=== PATIENT | female | born 1950 | race Caucasian/White ===

== ENCOUNTER 2016-05-07 07:46 | Day surgery (SDC) | payer BC, OTHER ==
[2016-05-07] MEDS ORDERED: Phenylephrine 10% Ophth Soln 5 ML Bot EYERT ONE (08:00)
[2016-05-07] MEDS ORDERED: Sodium Chloride 0.9% 10 ML Syringe FLUSH PRN (08:00)
[2016-05-07] MEDS ORDERED: Cataract Ophth Solution EYERT ONE (08:00)
[2016-05-07] MEDS ORDERED: Povidone-Iodine 5% Sterile Ophth Soln 30 ML Bottle EYERT ONE ×2 (08:00→09:12)
[2016-05-07] MEDS ORDERED: Proparacaine 0.5% Ophth Soln 15 ML Bottle EYERT ONE (08:00)
[2016-05-07] MEDS ORDERED: Timolol Maleate 0.5% Ophth Soln 5 ML Bottle EYERT ONE (08:00)
[2016-05-07] MEDS ORDERED: Acetaminophen/Codeine 300-30 MG Tab PO PRN (08:00)
[2016-05-07] MEDS ORDERED: Ondansetron 4 MG/2 ML SDV IVPUSH PRN (08:00)
[2016-05-07] MEDS ORDERED: Phenylephrine 10% Ophth Soln 5 ML Bot EYERT PRN (08:00)
[2016-05-07] MEDS ORDERED: Acetaminophen 325 MG Tab PO PRN (08:00)
[2016-05-07] MEDS ORDERED: Moxifloxacin 0.5% Ophth Soln 3 ML Bottle EYERT ONE (08:00)
[2016-05-07] MEDS ORDERED: Tetracaine 0.5% 2 ML Bottle EYERT ONE (09:11)
[2016-05-07] MEDS ORDERED: Apraclonidine 0.5% Ophth Soln 5 ML Bot EYERT ONE (09:12)
[2016-05-07] MEDS ORDERED: Dexamethasone/Neomycin/Polymyxin B Ophth Oint 3.5 GM Tube EYERT ONE (09:13)
[2016-05-07] MEDS ORDERED: Diclofenac Sodium 0.1% Ophth Soln 5 ML Bottle EYERT ONE (09:13)
[2016-05-07] MEDS ORDERED: Lidocaine 1% 30 ML SDV ONE (09:14)
[2016-05-07] MEDS ORDERED: Vancomycin 500 MG SDV EYERT ONE (09:14)
[2016-05-07] MEDS ORDERED: Balanced Salt Solution Ophth Irrig 500 ML Bottle IOCULAR ONE (09:14)
[2016-05-07] MEDS ORDERED: Chondroitin Sulfate/Hyaluronate Sodium Ophth Inj 0.75 ML Syringe EYERT ONE (09:14)
[2016-05-07] MEDS ORDERED: Midazolam 1 MG/ML 2 ML SDV IV ONE (10:24)
[2016-05-07] MEDS ORDERED: Dexamethasone 4 MG/ML SDV IV ONE (10:24)
--- NOTE | 2016-05-07 10:51 | OR ---
DATE: 05/07/2016 PREOPERATIVE DIAGNOSIS: Cataract, right eye. POSTOPERATIVE DIAGNOSIS: Cataract, right eye. PROCEDURE: Extracapsular cataract extraction with intraocular lens implant, right eye. ANESTHESIA: Topical/local MAC. COMPLICATIONS: None. INDICATION: Mrs. Mcdaniels was seen in the clinic. She has complained of a progressive decrease in vision. Clinical examination reveals visually significant cataract with best spectacle corrected vision of 20/70. I explained options, offered cataract surgery, and explained risks preoperatively, including, but not limited to, infection, retinal detachment, loss of vision, need for additional surgery, and risks associated with anesthesia. We discussed implant options preoperatively. She has significant preexisting astigmatism and has requested a Toric implant. I explained that she may still require glasses for some activities following surgery. OPERATIVE DESCRIPTION: After informed consent was obtained and the risks, benefits, and alternatives were explained, the patient was brought to the operative suite and topical anesthesia was administered. The patient was then prepped and draped in the sterile fashion and attention was placed on the right eye. A sterile lid speculum was placed into the right eye to allow operative exposure. A full-thickness paracentesis was made in the temporal portion of the operative eye. Preservative-free lidocaine 0.1 mL was injected into the anterior chamber followed by viscoelastic. A full-thickness corneal incision was then made into the anterior chamber. A bent needle cystotome was used to create a small chetna in the anterior capsule. The capsulorrhexis forceps was then used to create a 360-degree curvilinear capsulorrhexis. The nucleus was then removed using a phacoemulsification handpiece and the remaining cortical material was then removed with irrigation and aspiration handpiece. Following removal of the cortical material, the capsular bag was then inspected and noted to be free of any holes or tears. Viscoelastic was then injected into the capsular bag and the intraocular lens was inserted into the capsular bag. The implant was oriented to correspond with preoperative corneal dominguez made with the patient in the upright position. The viscoelastic material was then removed from both the anterior and posterior chambers and from behind the IOL. The lens and capsular bag were then reinspected. The IOL was well centered and the capsular bag intact. The wound and paracentesis sites were inspected and hydrated with balanced saline solution. Both were found to be self-sealing. The intraocular pressure was assessed digitally and found to be within normal range. A good red reflex was noted at the completion of the procedure. No complications occurred during the operation. At the completion of the procedure, Maxitrol, Voltaren, and Iopidine drops were placed into the operative eye. A sterile eye shield was placed over the operative eye and the patient was transported to the postoperative recovery area having tolerated the procedure well. Postoperative instructions were given along with a postoperative appointment. The patient was advised to call with any questions or concerns. No complications occurred. [facility] /[id number]
[2016-06-11 13:44] VITALS: BP 109/69
== END 2016-05-07 10:30 | disposition home or self-care (01) ==
LOC: DL.SDS 07:46
PROVIDERS: ATTEND Ophthalmology
DX: H26.9 Unspecified cataract (principal); K21.9 Gastro-esophageal reflux disease without esophagitis; F32.9 Major depressive disorder, single episode, unspecified; Z90.710 Acquired absence of both cervix and uterus; Z98.890 Other specified postprocedural states; Z79.899 Other long term (current) drug therapy
CPT/HCPCS: 66984; A9270; J3370; J7050; J1100; J2250; V2787

== ENCOUNTER 2016-07-15 09:30 | Day surgery (SDC) | payer BC ==
[~2016-07-15 09:30] MED LIST: Cataract Ophth Solution EYELF ONE; Dexamethasone 4 MG/ML SDV ONE; Midazolam 1 MG/ML 2 ML SDV ONE; Moxifloxacin 0.5% Ophth Soln 3 ML Bottle EYELF ONE; Phenylephrine 10% Ophth Soln 5 ML Bot EYELF ONE; Povidone-Iodine 5% Sterile Ophth Soln 30 ML Bottle EYELF ONE; Proparacaine 0.5% Ophth Soln 15 ML Bottle EYELF ONE; Timolol Maleate 0.5% Ophth Soln 5 ML Bottle EYELF ONE
[2016-07-15] MEDS ORDERED: Sodium Chloride 0.9% 10 ML Syringe IV PRN (10:00)
[2016-07-15] MEDS ORDERED: Tetracaine HCl/PF 0.5% 4 ML Bottle EYELF ONE (10:18)
[2016-07-15] MEDS ORDERED: Apraclonidine 0.5% Ophth Soln 5 ML Bot EYELF ONE (10:19)
[2016-07-15] MEDS ORDERED: Diclofenac Sodium 0.1% Ophth Soln 5 ML Bottle EYELF ONE (10:19)
[2016-07-15] MEDS ORDERED: Povidone-Iodine 5% Sterile Ophth Soln 30 ML Bottle EYELF ONE (10:19)
[2016-07-15] MEDS ORDERED: Dexamethasone/Neomycin/Polymyxin B Ophth Oint 3.5 GM Tube EYELF ONE (10:20)
[2016-07-15] MEDS ORDERED: Lidocaine 1% 30 ML SDV ONE (10:20)
[2016-07-15] MEDS ORDERED: Balanced Salt Solution Ophth Irrig 500 ML Bottle IOCULAR ONE (10:20)
[2016-07-15] MEDS ORDERED: Chondroitin Sulfate/Hyaluronate Sodium Ophth Inj 0.75 ML Syringe EYELF ONE (10:20)
[2016-07-15] MEDS ORDERED: Vancomycin 500 MG SDV EYELF ONE (10:20)
--- NOTE | 2016-07-15 11:29 | OR ---
DATE: 07/15/2016 PREOPERATIVE DIAGNOSIS: Cataract, left eye. POSTOPERATIVE DIAGNOSIS: Cataract, left eye. PROCEDURE: Extracapsular cataract extraction with intraocular lens implant, left eye. ANESTHESIA: Topical/local MAC. COMPLICATIONS: None. INDICATION: Ms. Mcdaniels was seen in the clinic with complaints of blurred vision, difficulty driving, difficulty with bright lights and glare. Clinical examination revealed visually significant cataract. I explained options. I offered cataract surgery and I explained risks preoperatively including but not limited to, infection, retinal detachment, loss of vision, need for additional surgery, and risks associated with anesthesia. We discussed implant options. She requested a monofocal implant. OPERATIVE DESCRIPTION: After informed consent was obtained and the risks, benefits, and alternatives were explained, the patient was brought to the operative suite and topical anesthesia was administered. The patient was then prepped and draped in the sterile fashion and attention was placed on the left eye. A sterile lid speculum was placed into the left eye to allow operative exposure. A full-thickness paracentesis was made in the temporal portion of the operative eye. Preservative-free lidocaine 0.1 mL was injected into the anterior chamber followed by viscoelastic. A full-thickness corneal incision was then made into the anterior chamber. A bent needle cystotome was used to create a small chetna in the anterior capsule. The capsulorrhexis forceps was then used to create a 360-degree curvilinear capsulorrhexis. The nucleus was then removed using a phacoemulsification handpiece and the remaining cortical material was then removed with irrigation and aspiration handpiece. Following removal of the cortical material, the capsular bag was then inspected and noted to be free of any holes or tears. Viscoelastic was then injected into the capsular bag and the intraocular lens was inserted into the capsular bag. No complications occurred. The viscoelastic material was then removed from both the anterior and posterior chambers and from behind the IOL. The lens and capsular bag were then reinspected. The IOL was well centered and the capsular bag intact. The wound and paracentesis sites were inspected and hydrated with balanced saline solution. Both were found to be self-sealing. The intraocular pressure was assessed digitally and found to be within normal range. A good red reflex was noted at the completion of the procedure. No complications occurred during the operation. At the completion of the procedure, Maxitrol, Voltaren, and Iopidine drops were placed into the operative eye. A sterile eye shield was placed over the operative eye and the patient was transported to the postoperative recovery area having tolerated the procedure well. Postoperative instructions were given along with a postoperative appointment. The patient was advised to call with any questions or concerns. [facility] /[id number]
[2016-07-15 12:56] VITALS: BP 135/75
[2016-07-15] MEDS ORDERED: Midazolam 1 MG/ML 2 ML SDV IV ONE (14:48)
[2016-07-15] MEDS ORDERED: Dexamethasone 4 MG/ML SDV IV ONE (14:48)
== END 2016-07-15 11:15 | disposition home or self-care (01) ==
LOC: DL.SDS 09:30
PROVIDERS: ATTEND Ophthalmology
DX: H26.9 Unspecified cataract (principal)
CPT/HCPCS: 66984; A9270; C1780; J1100; J2250; J3370; J7050

== ENCOUNTER 2017-11-08 17:17 | Emergency (ER) | payer OTHER, BC ==
[2017-11-08 17:21] VITALS: BP 160/86
[2017-11-08] MEDS ORDERED: Lidocaine 1% 30 ML SDV INJECT ONE (18:55)
[2017-11-08] MEDS ORDERED: Bacitracin Oint 1 GM U/D Packet TOP ONE (18:55)
--- NOTE | 2017-11-08 18:56 | EDM.PDOC ---
ED HPI GENERAL MEDICAL PROBLEM - General Source of Information: Reports: Patient, EMS History Limitations: Reports: No Limitations - History of Present Illness Onset: Today Duration: Minutes: Quality: Reports: Sharp Severity: Moderate Improves with: Reports: None Worsens with: Reports: None Context: Reports: Trauma (fall with laceration to face) Associated Symptoms: Reports: No Other Symptoms Neck Pain Score (Numeric/FACES): 8 <Marek Castellano - Last Filed: 11/08/17 18:50> <Marilin Roman - Last Filed: 11/09/17 00:33> - General Chief Complaint: Head Injury Stated Complaint: in by amb fall Time Seen by Provider: 11/08/17 17:30 - History of Present Illness INITIAL COMMENTS - FREE TEXT/NARRATIVE: This 67 yo female patient reports to the ED with LRAS due to a 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 Initially, the patient reported pain in her face and shoulders. As the patient was in the ED, the patient reported increased pain in her neck and increased stiffness. (Marek Castellano) - Related Data Allergies Allergy/AdvReac Type Severity Reaction Status Date / Time No Known Allergies Allergy Verified 11/08/17 17:19 Home Meds: Home Meds Acetaminophen/Diphenhydramine [Tylenol Pm Ex-Strength Caplet] 1 tab PO ASDIRECTED PRN 10/30/15 [History] Tolterodine Tartrate [Detrol LA] 2 mg PO ASDIRECTED PRN 10/30/15 [History] Naproxen [Naprosyn] 1 tab PO BID PRN 05/06/16 [History] Lifitegrast [Xiidra] 1 drop EYEBOTH BID 07/14/16 [History] Jxkx-Czrx-[id number] [Cataract Opthalmic Solution] 1 drop EYELF QID 07/14/16 [History ] Propylene Glycol/Peg 400 [Systane 0.3-0.4% Eye Drops] 1 drop EYEBOTH BID [History] Past Medical History HEENT History: Reports: Cataract, Impaired Vision Cardiovascular History: Reports: None Respiratory History: Reports: None Gastrointestinal History: Reports: GERD, Hiatal Hernia Genitourinary History: Reports: Urinary Incontinence, Other (See Below) Other Genitourinary History: overactive bladder [employer] 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: Musculoskeletal History: Reports: Arthritis, Fracture Neurological History: Reports: None Psychiatric History: Reports: Depression Endocrine/Metabolic History: Reports: None Hematologic History: Reports: None Immunologic History: Reports: None Oncologic (Cancer) History: Reports: Breast Dermatologic History: Reports: Psoriasis - Infectious Disease History Infectious Disease History: Reports: Chicken Pox, Measles, Mumps - Past Surgical History HEENT Surgical History: Reports: None, Cataract Surgery Cardiovascular Surgical History: Reports: None Respiratory Surgical History: Reports: None GI Surgical History: Reports: EGD Female Surgical History: Reports: Hysterectomy Musculoskeletal Surgical History: Reports: ORIF Other Musculoskeletal Surgeries/Procedures:: L) ankle surg Oncologic Surgical History: Reports: Lumpectomy <Marek Castellano M - Last Filed: 11/08/17 18:50> Social & Family History - Family History Family Medical History: Noncontributory - Tobacco Use Smoking Status *Q: Never Smoker - Caffeine Use Caffeine Use: Reports: Coffee - Recreational Drug Use Recreational Drug Use: No - Living Situation & Occupation Occupation: Retired <Marek Castellano M - Last Filed: 11/08/17 18:50> ED ROS GENERAL - Review of Systems Review Of Systems: ROS reveals no pertinent complaints other than HPI. <Marek Castellano M - Last Filed: 11/08/17 18:50> ED EXAM, HEAD INJURY - Physical Exam Exam: See Below Exam Limited By: No Limitations General Appearance: Alert, WD/WN, Moderate Distress Head: Facial Lacerations Nexus Criteria: Posterior, Midline Cervical Tenderness Eyes: Bilateral Eye: EOMI, Normal Inspection, PERRL Ears: Normal External Exam, Normal Canal, Hearing Grossly Normal, Normal TMs Nose: Active Bleeding, Dried Blood Neck: Limited Range of Motion, Tenderness, Tender Midline Respiratory: No Respiratory Distress, Lungs Clear, Normal Breath Sounds, No Accessory Muscle Use, Chest Non-Tender Cardiovascular: Normal Peripheral Pulses, Regular Rate, Rhythm, No Edema, No Gallop, No JVD, No Murmur, No Rub GI/Abdominal Exam: Normal Bowel Sounds, Soft, Non-Tender, No Organomegaly, No Distention, No Abnormal Bruit, No Mass (Female) Exam: Deferred Rectal (Female) Exam: Deferred Back Exam: Full Range of Motion, Normal Inspection, NT Extremities: Limited Range of Motion (pain in shoulders) Neurologic: rope tier II-XII nml As Tested, No Motor/Sensory Deficits, Alert, Normal Mood/Affect, Oriented x 3 - [place] Coma Score Best Eye Response (Madi): (4) Open Spontaneously Best Verbal Response ([place]adi): (5) Oriented Best Motor Response ([place]): (6) Obeys Commands Madi Total: 15 <Marek Castellano - Last Filed: 11/08/17 18:50> Course <Marek Castellano - Last Filed: 11/08/17 18:50> <Marilin Roman - Last Filed: 11/09/17 00:33> - Vital Signs Last Recorded V/S: Last Vital Signs Temp 98 F 11/08/17 17:21 Pulse 93 11/08/17 17:21 Resp 16 11/08/17 17:21 BP 160/86 H 11/08/17 17:21 Pulse Ox 98 11/08/17 17:21 - Orders/Labs/Meds Orders: Active Orders 24 hr Category Date Time Status Vaccines to be Administered [RC] PER UNIT ROUTINE Care 11/08/17 19:35 Active Meds: Medications Discontinued Medications Generic Name Dose Route Start Last Admin Trade Name Freq PRN Reason Stop Dose Admin Amoxicillin/Clavulanate Potassium 1 tab 11/08/17 19:36 11/08/17 19:43 Augmentin 875 Mg/125 Mg PO 11/08/17 19:37 1 tab ONETIME ONE Administration Bacitracin 1 dose 11/08/17 18:55 11/08/17 19:17 Bacitracin Oint 1 Gm TOP 11/08/17 18:56 1 dose ONETIME ONE Administration Diphtheria/Tetanus/Acell Pertussis 0.5 ml 11/08/17 19:35 11/08/17 19:52 Adacel IM 11/08/17 19:36 0.5 ml .ONCE ONE Administration Lidocaine HCl 30 ml 11/08/17 18:55 11/08/17 19:18 Xylocaine-Mpf 1% INJECT 11/08/17 18:56 30 ml ONETIME ONE Administration Oxymetazoline HCl 1 ml 11/08/17 19:59 Afrin Original 0.05% Nasal [place] TAINA 11/08/17 20:00 ONETIME ONE - Radiology Interpretation Free Text/Narrative:: CT Maxillofacial: IMPRESSION: Comminuted displaced fractures of the bilateral nasal bones. Displaced fractures of the frontal processes of the maxillary bones bilaterally. Comminuted angulated fracture of the nasal septum. Correlate clinically to exclude nasal septal hematoma. Thank you for allowing us to participate in the care of your patient. CT CSPINE: IMPRESSION: No acute fracture or traumatic subluxation. Left shoulder xray: IMPRESSION: No acute fracture or dislocation. Right shoulder xray: IMPRESSION: No acute fracture or dislocation. See rad report (Marilin Roman) - Re-Assessments/Exams Free Text/Narrative Re-Assessment/Exam: 11/08/17 19:[address] Melendez, ENT from [facility]. He states the patient should be seen in the clinic this week. Afrin nasal spray, Augmentin prophylactically, and hold pressure as well as ice to the area. (Marilin Roman) Departure <Marek Castellano - Last Filed: 11/08/17 18:50> - Departure Time of Disposition: 19:37 Condition: Fair - Discharge Information *PRESCRIPTION DRUG MONITORING PROGRAM REVIEWED*: No *COPY OF PRESCRIPTION DRUG MONITORING REPORT IN PATIENT SHAKIRA: No <Marilin Roman - Last Filed: 11/09/17 00:33> - Departure Disposition: Home, Self-Care 01 Clinical Impression: Concussion with no loss of consciousness, Scalp laceration, Strain of neck muscle Nasal bone fracture Qualifiers: Encounter type: initial encounter Fracture type: closed Qualified Code(s): S02.2XXA - Fracture of nasal bones, initial encounter for closed fracture Fracture of alveolar process of maxillary bone Qualifiers: Encounter type: initial encounter Fracture type: closed Qualified Code(s): S02.42XA - Fracture of alveolus of maxilla, initial encounter for closed fracture Fracture of nasal septum Qualifiers: Encounter type: initial encounter Fracture type: closed Qualified Code(s): S02.2XXA - Fracture of nasal bones, initial encounter for closed fracture - Discharge Information Instructions: Concussion, Adult, Fijq-ak-Xtmv, Nasal Fracture, Zdqu-[id number], Facial or Scalp Contusion, Anqx-qb-Xlcw, Muscle Strain, Fxcw-ld-Sbbe, Head Injury, Adult, Qufx-dt-Wxpq, Cervical Sprain, Juqa-nv-Bwql, Laceration Care, Adult, Jrqq-nz-Ienq, Stitches, [place], or Adhesive Wound Closure, Cxmz-at-Tlkj , Sutured Wound Care, Ajxt-ib-Uxvo Forms: ED Department Discharge Additional Instructions: May use Tylenol for pain as directed May use ice to affected areas as tolerated No blowing your nose. RX: Augmentin, Afrin nasal spray Rest - My Orders Last 24 Hours: My Active Orders 11/08/17 19:35 Vaccines to be Administered [RC] PER UNIT ROUTINE - Assessment/Plan Last 24 Hours: My Active Orders 11/08/17 19:35 Vaccines to be Administered [RC] PER UNIT ROUTINE
[2017-11-08] MEDS ORDERED: Diphtheria,Pertussis(Acell),Tetanus Vaccine 0.5 ML SDV IM ONE (19:35)
[2017-11-08] MEDS ORDERED: Amoxicillin/Clavulanate K 875-125 MG Tab PO ONE (19:36)
[2017-11-08] MEDS ORDERED: Oxymetazoline 0.05% Nasal Spray 15 ML Bottle NAS ONE (19:59)
== END 2017-11-08 20:16 | disposition home or self-care (01) ==
LOC: DL.ED 17:17
DX: S02.2XXA Fracture of nasal bones, initial encounter for closed fracture (principal); S02.42XA Fracture of alveolus of maxilla, initial encounter for closed fracture; S01.81XA Laceration without foreign body of other part of head, initial encounter; Z23 Encounter for immunization; Z79.899 Other long term (current) drug therapy; Y92.129 Unspecified place in nursing home as the place of occurrence of the external cause; W18.39XA Other fall on same level, initial encounter; Y99.0 Civilian activity done for income or pay
CPT/HCPCS: 12011; 70486; 72125; 73030; 90471; 90715; 99284; A9270; 13151